=== PATIENT | female | born 1975 | race Caucasian/White ===

== ENCOUNTER 2016-06-16 13:42 | Emergency (ER) | payer OTHER ==
[2016-06-16] MEDS ORDERED: Sodium Chloride 0.9% 10 ML Syringe FLUSH PRN (14:06)
[2016-06-16 14:16] VITALS: BP 137/90
[2016-06-16] MEDS ORDERED: Iopamidol 612 MG/ML 50 ML SDV IVPUSH ONE (14:20)
[2016-06-16] MEDS ORDERED: Iopamidol 612 MG/ML 75 ML Bottle IVPUSH ONE (14:20)
[2016-06-16 14:57] LABS: CHLORIDE,CL 101 mmol/L (101-111); SODIUM,NA 136 mmol/L (135-145)
--- NOTE | 2016-07-10 16:49 | EDM.PDOC ---
Scribed by Paola Gonzalez 06/16/16 1846 for Miller Perez MD ED HPI ENT - General Chief Complaint: ENT Problem Stated Complaint: cold [id number] Time Seen by Provider: 06/16/16 14:15 Source of Information: Reports: Patient, RN, RN notes reviewed History Limitations: Reports: No limitations - History of Present Illness INITIAL COMMENTS - FREE TEXT/NARRATIVE: Patient with "swollen glands" in neck x 1-2 weeks. Has been seen in clinic by Dr. Rasmussen and had lab draws yesterday and CT scheduled for next Saturday. Reports mild sore throat and "no voice". Similar swelling last year and "never got a diagnosis". Denies fever, nausea, vomiting, neck pain and weight gain or loss. Severity: moderate Improves with: Reports: None Worsens with: Reports: None Associated Symptoms: Reports: no other symptoms - Related Data Allergies/ADRs: Allergies Allergy/AdvReac Type Severity Reaction Status Date / Time cyclobenzaprine HCl Allergy Anaphylactic Verified 06/16/16 14:32 [From Flexeril] Shock gluten Allergy Other Verified 06/16/16 14:32 haloperidol [From Haldol] Allergy Other Verified 06/16/16 14:32 haloperidol lactate Allergy Other Verified 06/16/16 14:32 [From Haldol] venom-honey bee Allergy Hives Verified 06/16/16 14:32 [bee venom (honey bee)] Ivory soap Allergy Rash Uncoded 06/16/16 14:32 Home Meds: Home Meds Acetaminophen [Tylenol Arthritis Pain] 1 tab PO TID 05/08/16 [History] Albuterol In 2 puff INH QID PRN 05/08/16 [History] Bacillus Coagulans/Inulin [Probiotic Formula Capsule] 1 each PO DAILY 05/08/16 [ History] Cetirizine HCl [Zyrtec] 10 mg PO BID 05/08/16 [History] Dicyclomine [Bentyl] 20 mg PO QID PRN 05/08/16 [History] EPINEPHrine [Epipen 2-Uvaldo] 0.3 ml IM ONETIME PRN 05/08/16 [History] Ergocalciferol (Vitamin D2) [Vitamin D2] 50,000 units PO DAILY 05/08/16 [History ] Estradiol [Estradiol] 1 tab PO DAILY 05/08/16 [History] Fenofibrate [Fenofibrate] 1 tab PO DAILY 05/08/16 [History] Fiber Select Gummies 1 tab PO DAILY 05/08/16 [History] Fluticasone Propionate [Flonase] 1 spray NASBOTH DAILY 05/08/16 [History] Glycopyrrolate [Robinul] 1 mg PO BID 05/08/16 [History] Hydrochlorothiazide 25 mg PO DAILY 05/08/16 [History] Indomethacin [Indocin] 1 cap PO BIDMEALS 05/08/16 [History] LORazepam [LORazepam] 0.5 mg PO BID PRN 05/08/16 [History] Levothyroxine Sodium [Synthroid] 150 mcg PO ACBREAKFAST 05/08/16 [History] Lysine 1 tab PO BID 05/08/16 [History] Minocycline HCl [Minocin] 1 cap PO BID 05/08/16 [History] Waves-3/DHA/Epa/Fish Oil [Fish Oil Waves-3 EC 1,200 mg] 2,000 mg PO BID [History] Ondansetron HCl [Ondansetron] 1 tab PO Q8HR PRN 05/08/16 [History] PARoxetine HCl [Paroxetine HCl] 20 mg PO DAILY 05/08/16 [History] Pantoprazole [Protonix] 40 mg PO ACBREAKFAST 05/08/16 [History] Prazosin HCl [Prazosin] 3 cap PO BEDTIME 05/08/16 [History] Propranolol HCl 80 mg PO BID 05/08/16 [History] Sod Chlor&Bicarb/Squeez Bottle [Sinus Rinse Starter Kit] 1 each NASBOTH TID PRN 05/08/16 [History] atorvaSTATin Calcium [Atorvastatin Calcium] 80 mg PO BEDTIME 05/08/16 [History] tiZANidine HCl [Tizanidine HCl] 1 tab PO Q6H PRN 05/08/16 [History] Varenicline Tartrate [Chantix] 1 mg PO DAILY 06/16/16 [History] Social & Family History - Family History Family Medical History: Noncontributory ED ROS ENT - Review of Systems Review Of Systems: ROS reveals no pertinent complaints other than HPI. ED EXAM, ENT - Physical Exam Exam: See Below Exam Limited By: No limitations General Appearance: obese Eye Exam: bilateral eye: conjunctival injection Ears: normal external exam Nose: normal inspection, normal mucousa, no blood Mouth/Throat: Hoarse voice (faint), Other (normal appearing pharynx. ) Head: atraumatic, normocephalic, other (bilateral parotid swelling with very slight tenderness.) Neck: other (left supraclavicular swelling without palpable individual nodes.) Respiratory/Chest: no respiratory distress, lungs clear, normal breath sounds, no accessory muscle use, chest non-tender Cardiovascular: normal peripheral pulses, regular rate, rhythm, no edema, no gallop, no JVD, no murmur, no rub GI/Abdominal: other (obese and benign.) Back: normal inspection, full range of motion Extremities: normal inspection, normal range of motion, non-tender, no pedal edema, normal capillary refill Neurological: other (chronic tartive dyskineaia. No motor/sensory deficits.) Course - Vital Signs Last Recorded V/S: Last Vital Signs Temp 35.9 C 06/16/16 13:45 Pulse 90 06/16/16 13:45 Resp 16 06/16/16 13:45 BP 137/90 06/16/16 13:45 Pulse Ox 98 06/16/16 13:45 - Orders/Labs/Meds Labs: Laboratory Tests 06/16/16 06/16/16 06/16/16 Range/Units 14:30 14:30 14:30 WBC 6.2 (5.0-10.0) 10^3/uL RBC 4.06 L (4.2-5.4) 10^6/uL Hgb 12.7 (12.0-16.0) g/dL Hct 38.1 (37.0-47.0) % MCV 93.8 (80-100) fL MCH 31.3 (27.0-34.0) pg MCHC 33.3 (33.0-35.0) g/dL RDW Not Reportable RDW Coeff of Sarah Not Reportable Plt Count 311 (150-450) 10^3/uL MPV Not Reportable Neutrophils % (Manual) 56 % Lymphocytes % (Manual) 35 % Monocytes % (Manual) 8 % Eosinophils % (Manual) 1 % Sodium 136 (135-145) mmol/L Potassium 3.9 (3.6-5.0) mmol/L Chloride 101 (101-111) mmol/L Carbon Dioxide 25.0 (21.0-31.0) mmol/L Anion Gap 13.9 BUN 25 H (7-18) mg/dL Creatinine 0.7 (0.6-1.3) mg/dL Est Cr Clr Drug Dosing 99.01 mL/min Estimated GFR (MDRD) > 60 BUN/Creatinine Ratio 35.71 Glucose 113 H (74-105) mg/dL Calcium 9.4 (8.4-10.2) mg/dl Total Bilirubin 0.4 (0.2-1.0) mg/dL AST 24 (10-42) IU/L ALT 27 (10-60) IU/L Alkaline Phosphatase 36 L (42-121) IU/L Total Protein 7.1 (6.7-8.2) g/dl Albumin 4.1 (3.2-5.5) g/dl Globulin 3.0 Albumin/Globulin Ratio 1.37 Amylase 79 (28-100) U/L Urine Color (YELLOW) Urine Appearance (CLEAR) Urine pH (5.0-9.0) Ur Specific [place] (1.005-1.030) Urine Protein (NEGATIVE) Urine Glucose (UA) (NEGATIVE) Urine Ketones (NEGATIVE) Urine Occult Blood (NEGATIVE) Urine Nitrite (NEGATIVE) Urine Bilirubin (NEGATIVE) Urine Urobilinogen (0.2-1.0) mg/dL Ur Leukocyte Esterase (NEGATIVE) Urine RBC /HPF Urine WBC (0-5/HPF) /HPF Ur Epithelial Cells /HPF Urine Bacteria (0-FEW/HPF) /HPF Monoscreen Negative Mumps Virus IgG Ab Positive (POS) Mumps Virus IgM Ab IV 06/16/16 06/16/16 Range/Units 14:30 14:45 WBC (5.0-10.0) 10^3/uL RBC (4.2-5.4) 10^6/uL Hgb (12.0-16.0) g/dL Hct (37.0-47.0) % MCV (80-100) fL MCH (27.0-34.0) pg MCHC (33.0-35.0) g/dL RDW RDW Coeff of Sarah Plt Count (150-450) 10^3/uL MPV Neutrophils % (Manual) % Lymphocytes % (Manual) % Monocytes % (Manual) % Eosinophils % (Manual) % Sodium (135-145) mmol/L Potassium (3.6-5.0) mmol/L Chloride (101-111) mmol/L Carbon Dioxide (21.0-31.0) mmol/L Anion Gap BUN (7-18) mg/dL Creatinine (0.6-1.3) mg/dL Est Cr Clr Drug Dosing mL/min Estimated GFR (MDRD) BUN/Creatinine Ratio Glucose (74-105) mg/dL Calcium (8.4-10.2) mg/dl Total Bilirubin (0.2-1.0) mg/dL AST (10-42) IU/L ALT (10-60) IU/L Alkaline Phosphatase (42-121) IU/L Total Protein (6.7-8.2) g/dl Albumin (3.2-5.5) g/dl Globulin Albumin/Globulin Ratio Amylase (28-100) U/L Urine Color Yellow (YELLOW) Urine Appearance Clear (CLEAR) Urine pH 6.5 (5.0-9.0) Ur Specific [place] 1.020 (1.005-1.030) Urine Protein Negative (NEGATIVE) Urine Glucose (UA) Negative (NEGATIVE) Urine Ketones Negative (NEGATIVE) Urine Occult Blood Negative (NEGATIVE) Urine Nitrite Negative (NEGATIVE) Urine Bilirubin Negative (NEGATIVE) Urine Urobilinogen 0.2 (0.2-1.0) mg/dL Ur Leukocyte Esterase Negative (NEGATIVE) Urine RBC 0-5 /HPF Urine WBC 0-5 (0-5/HPF) /HPF Ur Epithelial Cells Few /HPF Urine Bacteria Occasional (0-FEW/HPF) /HPF Monoscreen Mumps Virus IgG Ab (POS) Mumps Virus IgM Ab 0.11 IV Meds: Medications Discontinued Medications Generic Name Dose Route Start Last Admin Trade Name Freq PRN Reason Stop Dose Admin Iopamidol 75 ml 06/16/16 14:20 06/16/16 15:31 Isovue-300 (61%) IVPUSH 06/16/16 14:21 100 ml ONETIME ONE Administration Iopamidol 50 ml 06/16/16 14:20 06/16/16 16:06 Isovue-300 (61%) IVPUSH 06/16/16 14:21 Not Given ONETIME ONE Sodium Chloride 10 ml 06/16/16 14:06/16/16 14:35 Saline Flush FLUSH 10 ml ASDIRECTED PRN Administration Keep Vein Open Rapid strep: Negative. - Radiology Interpretation Free Text/Narrative:: CT chest: Per rad report shows normal chest CT. CT abdomen: Per rad report shows no acute findings. CT neck soft tissue: Per rad report shows no acute findings. Per rad report addendum shows both parotid glands are prominent. Left parotid gland is slightly more prominent than the right. This could represent inflammation or infection. Departure - Departure Time of Disposition: 16:35 Disposition: Home, Self-Care 01 Condition: good Clinical Impression: Localized soft tissue swelling, Acute parotitis, Laryngitis Instructions: Parotitis, [id number], Laryngitis, [id number] Referrals: Pily Navarro MD [Primary Care Provider] - Forms: ED Department Discharge Additional Instructions: Follow up in clinic next week with your doctor. Have doctor review the lab results and CT results from today's ER visit. Use salt water gargles several times daily. Use cool mist humidifier. I have read and agree with the documentation that has been completed regarding this visit. By signing this record, I attest that the documentation was completed in my physical presence and is an accurate record of the encounter.
== END 2016-06-16 16:52 | disposition home or self-care (01) ==
LOC: DL.ED 13:42
DX: K11.21 Acute sialoadenitis (principal); J04.0 Acute laryngitis; Z79.899 Other long term (current) drug therapy; Z91.09 Other allergy status, other than to drugs and biological substances; Z88.8 Allergy status to other drugs, medicaments and biological substances
CPT/HCPCS: 36415; 70491; 71260; 74177; 80053; 81001; 82150; 85025; 86308; 86735; 87081; 87430; 99284; J7050; Q9967

== ENCOUNTER 2016-07-13 04:53 | Emergency (ER) | payer OTHER ==
[2016-07-13 05:01] VITALS: BP 90/65
--- NOTE | 2016-07-13 05:17 | EDM.PDOC ---
ED HPI LOWER BACK PAIN/INJURY - General Chief Complaint: Back Pain or Injury Stated Complaint: BACK PAIN Time Seen by Provider: 07/13/16 05:05 Source of Information: Reports: Patient History Limitations: Reports: No limitations - History of Present Illness INITIAL COMMENTS - FREE TEXT/NARRATIVE: This 41 yo female patient reports to the ED with left side and left abdomen pain. The patient reports she was seen for this pain in the clinic 2 days ago and was started on Norflex. The patient reports she had x-rays on Saturday which showed a kidney stone. The patient was advised by the clinic that the kidney stone was not causing her symptoms. The patient reports she has been feeling bloated over the past 2 days. The patient reports no changes in her bowel movements or in her urinary habits. The patient reports her pain has increased this morning, but the patient has not taken anything for her symptoms since last night. Symptom Onset Date: 07/10/16 Timing/Duration: Reports: Constant, Getting worse Location: Reports: lower (left lower back), paraspinal Quality: Reports: Ache, Sharp, Stabbing Severity: severe Place of Occurrence: home Improves with: Reports: Rest Worsens with: Reports: Movement Context: Reports: other (unknown) Associated Symptoms: Reports: Denies symptoms - Related Data Allergies/ADRs: Allergies Allergy/AdvReac Type Severity Reaction Status Date / Time cyclobenzaprine HCl Allergy Anaphylactic Verified 07/13/16 05:03 [From Flexeril] Shock gluten Allergy Other Verified 07/13/16 05:03 haloperidol [From Haldol] Allergy Other Verified 07/13/16 05:03 haloperidol lactate Allergy Other Verified 07/13/16 05:03 [From Haldol] venom-honey bee Allergy Hives Verified 07/13/16 05:03 [bee venom (honey bee)] Ivory soap Allergy Rash Uncoded 07/13/16 05:03 Home Meds: Home Meds Acetaminophen [Tylenol Arthritis Pain] 1 tab PO TID 05/08/16 [History] Albuterol In 2 puff INH QID PRN 05/08/16 [History] Bacillus Coagulans/Inulin [Probiotic Formula Capsule] 1 each PO DAILY 05/08/16 [ History] Cetirizine HCl [Zyrtec] 10 mg PO BID 05/08/16 [History] Dicyclomine [Bentyl] 20 mg PO QID PRN 05/08/16 [History] EPINEPHrine [Epipen 2-Uvaldo] 0.3 ml IM ONETIME PRN 05/08/16 [History] Ergocalciferol (Vitamin D2) [Vitamin D2] 50,000 units PO DAILY 05/08/16 [History ] Estradiol [Estradiol] 1 tab PO DAILY 05/08/16 [History] Fenofibrate [Fenofibrate] 1 tab PO DAILY 05/08/16 [History] Fiber Select Gummies 1 tab PO DAILY 05/08/16 [History] Fluticasone Propionate [Flonase] 1 spray NASBOTH DAILY 05/08/16 [History] Glycopyrrolate [Robinul] 1 mg PO BID 05/08/16 [History] Hydrochlorothiazide 25 mg PO DAILY 05/08/16 [History] Indomethacin [Indocin] 1 cap PO BIDMEALS 05/08/16 [History] LORazepam [LORazepam] 0.5 mg PO BID PRN 05/08/16 [History] Levothyroxine Sodium [Synthroid] 150 mcg PO ACBREAKFAST 05/08/16 [History] Lysine 1 tab PO BID 05/08/16 [History] Minocycline HCl [Minocin] 1 cap PO BID 05/08/16 [History] [place]-3/DHA/Epa/Fish Oil [Fish Oil [place]-3 EC 1,200 mg] 2,000 mg PO BID [History] Ondansetron HCl [Ondansetron] 1 tab PO Q8HR PRN 05/08/16 [History] PARoxetine HCl [Paroxetine HCl] 20 mg PO DAILY 05/08/16 [History] Pantoprazole [Protonix] 40 mg PO ACBREAKFAST 05/08/16 [History] Prazosin HCl [Prazosin] 3 cap PO BEDTIME 05/08/16 [History] Propranolol HCl 80 mg PO BID 05/08/16 [History] Sod Chlor&Bicarb/Squeez Bottle [Sinus Rinse Starter Kit] 1 each NASBOTH TID PRN 05/08/16 [History] atorvaSTATin Calcium [Atorvastatin Calcium] 80 mg PO BEDTIME 05/08/16 [History] Varenicline Tartrate [Chantix] 1 mg PO DAILY 06/16/16 [History] Orphenadrine [Norflex] 1 tab PO Q6H PRN 07/13/16 [History] Past Medical History Cardiovascular History: Reports: High cholesterol, Hypertension Gastrointestinal History: Reports: Irritable bowel syndrome Endocrine/Metabolic History: Reports: Hyperthyroidism Social & Family History - Family History Family Medical History: Noncontributory - Tobacco Use Smoking Status *Q: Current Every Day Smoker Years of Tobacco use: 18 Packs/Tins Daily: 0.5 ED ROS GENERAL - Review of Systems Review Of Systems: ROS reveals no pertinent complaints other than HPI. ED EXAM,LOWER BACK PAIN/INJURY - Physical Exam Exam: See Below Exam Limited By: No limitations General Appearance: alert, WD/WN, moderate distress, obese Eye Exam: bilateral eye: EOMI, normal inspection, PERRL Ears: normal external exam, normal canal, hearing grossly normal, normal TMs Nose: normal inspection, normal mucosa, no blood Throat/Mouth: Normal inspection, Normal lips, Normal teeth, Normal gums, Normal oropharynx, Normal voice, No airway compromise Head: atraumatic, normocephalic Neck: normal inspection, supple, non-tender, full range of motion Respiratory/Chest: no respiratory distress, lungs clear, normal breath sounds, no accessory muscle use, chest non-tender Cardiovascular: normal peripheral pulses, regular rate, rhythm, no edema, no gallop, no JVD, no murmur, no rub GI/Abdominal: normal bowel sounds, no abnormal bruit, no mass, distended ( diffuse abdomenal distention), tender (entire left side of her abdomen to light touch), other (obese) (Female) Exam: Deferred Rectal (Female) Exam: Deferred Back Exam: CVA tenderness (L), decreased range of motion, muscle spasm, paraspinal tenderness (left side) Extremities: normal inspection, normal range of motion, non-tender, no pedal edema, normal capillary refill Neurological: alert, normal mood/affect, CN II-XII intact, oriented x 3 Psychiatric: anxious, flat affect Skin Exam: Warm, Dry, Intact, Normal color, No rash Lymphatic: no adenopathy Course - Vital Signs Last Recorded V/S: Last Vital Signs Temp 36.4 C 07/13/16 05:00 Pulse 71 07/13/16 05:00 Resp 20 07/13/16 05:00 BP 90/65 07/13/16 05:00 Pulse Ox 100 07/13/16 05:00 - Orders/Labs/Meds Labs: Laboratory Tests 07/13/16 07/13/16 07/13/16 Range/Units 05:10 05:10 05:30 WBC 6.7 (5.0-10.0) 10^3/uL RBC 4.24 (4.2-5.4) 10^6/uL Hgb 13.3 (12.0-16.0) g/dL Hct 39.8 (37.0-47.0) % MCV 93.9 (80-100) fL MCH 31.4 (27.0-34.0) pg MCHC 33.4 (33.0-35.0) g/dL Plt Count 288 (150-450) 10^3/uL Neut % (Auto) 45.2 (42.2-75.2) % Lymph % (Auto) 43.9 (20.5-50.1) % [place] % (Auto) 8.6 H (2-8) % Eos % (Auto) 1.8 (1.0-3.0) % Baso % (Auto) 0.5 (0.0-1.0) % Sodium 135 (135-145) mmol/L Potassium 4.3 (3.6-5.0) mmol/L Chloride 100 L (101-111) mmol/L Carbon Dioxide 24.0 (21.0-31.0) mmol/L Anion Gap 15.3 BUN 21 H (7-18) mg/dL Creatinine 0.9 (0.6-1.3) mg/dL Est Cr Clr Drug Dosing TNP Estimated GFR (MDRD) > 60 BUN/Creatinine Ratio 23.33 Glucose 120 H (74-105) mg/dL Calcium 8.8 (8.4-10.2) mg/dl Total Bilirubin 0.4 (0.2-1.0) mg/dL AST 23 (10-42) IU/L ALT 26 (10-60) IU/L Alkaline Phosphatase 45 (42-121) IU/L Total Protein 7.0 (6.7-8.2) g/dl Albumin 3.9 (3.2-5.5) g/dl Globulin 3.1 Albumin/Globulin Ratio 1.26 Amylase 61 (28-100) U/L Lipase 29 (22-51) U/L Urine Color Yellow (YELLOW) Urine Appearance Clear (CLEAR) Urine pH 5.0 (5.0-9.0) Ur Specific [place] 1.015 (1.005-1.030) Urine Protein Negative (NEGATIVE) Urine Glucose (UA) Negative (NEGATIVE) Urine Ketones Negative (NEGATIVE) Urine Occult Blood Negative (NEGATIVE) Urine Nitrite Negative (NEGATIVE) Urine Bilirubin Negative (NEGATIVE) Urine Urobilinogen 0.2 (0.2-1.0) mg/dL Ur Leukocyte Esterase Negative (NEGATIVE) Urine RBC 0-5 /HPF Urine WBC 0-5 (0-5/HPF) /HPF Ur Epithelial Cells Few /HPF Urine Bacteria Few (0-FEW/HPF) /HPF Urine Yeast Few H (0/HPF) /HPF Meds: Medications Discontinued Medications Generic Name Dose Route Start Last Admin Trade Name Freq PRN Reason Stop Dose Admin Ketorolac Tromethamine 60 mg 07/13/16 05:49 Toradol IM 07/13/16 05:50 ONETIME ONE Orphenadrine Citrate 60 mg 07/13/16 05:49 Norflex IM 07/13/16 05:50 ONETIME ONE Departure - Departure Time of Disposition: 06:01 Disposition: Home, Self-Care 01 Condition: fair Clinical Impression: Muscle strain, Strain of muscle, fascia and tendon of lower back, sequela Instructions: Back Pain, Adult, [id number], Muscle Strain, [id number] Forms: ED Department Discharge Care Plan Goals: The patient was advised of the examination and lab results during the visit. The patient was given injections of Toradol and Norflex while in the ED. The patient was encouraged to take her medications as prescribed. The patient should follow-up with her primary care facility for continued evaluation and further management.
[2016-07-13 05:38] LABS: CHLORIDE,CL 100 mmol/L (101-111); SODIUM,NA 135 mmol/L (135-145)
[2016-07-13] MEDS ORDERED: Ketorolac 30 MG/ML SDV IM ONE (05:49)
== END 2016-07-13 06:17 | disposition home or self-care (01) ==
LOC: DL.ED 04:53
DX: S39.012S Strain of muscle, fascia and tendon of lower back, sequela (principal); E78.00 Pure hypercholesterolemia, unspecified; I10 Essential (primary) hypertension; E05.90 Thyrotoxicosis, unspecified without thyrotoxic crisis or storm; F17.210 Nicotine dependence, cigarettes, uncomplicated; Z91.09 Other allergy status, other than to drugs and biological substances; Z88.8 Allergy status to other drugs, medicaments and biological substances; Z91.030 Bee allergy status; Z79.899 Other long term (current) drug therapy
CPT/HCPCS: 36415; 80053; 81001; 82150; 83690; 85025; 96372; 99283; J1885; J2360

== ENCOUNTER 2016-09-05 07:07 | Day surgery (SDC) | payer MEDICARE, OTHER ==
[~2016-09-05 07:07] MED LIST: Dextrose 5%-0.45% NaCl 1,000 ML IV SCH; Midazolam 1 MG/ML 2 ML SDV ONE; Sodium Chloride 0.9% 10 ML Syringe FLUSH PRN; fentaNYL 100 MCG/2 ML SDV ONE
[2016-09-05] MEDS ORDERED: fentaNYL 100 MCG/2 ML SDV IV ONE ×3 (07:49→15:34)
[2016-09-05] MEDS ORDERED: Midazolam 1 MG/ML 2 ML SDV IV ONE ×4 (07:50→15:34)
[2016-09-05 10:42] VITALS: BP 114/64
--- NOTE | 2016-09-05 10:51 | OR ---
DATE: 09/05/2016 PROCEDURE: Esophagogastroduodenoscopy and multiple pinch biopsies. INSTRUMENT USED: GIF-Q180 Olympus video panendoscope. PREMEDICATIONS: No oral topical anesthesia used. Fentanyl 100 mcg intravenous, Versed 2 mg intravenous. The procedure was done under pulse oximetry, BP recording, and laboratory mechanic helper. INDICATION: The patient with persistent heartburn, dyspepsia, abdominal pain, and bloating, unexplained, and not responsive to medical measures, on high-dose PPI. Has been on manager technology Indocin. Esophagogastroduodenoscopy is performed for detection of any active erosive lesions, Carrillo esophagus and/or malignancy also under consideration, H. pylori status to be determined, small bowel biopsies to be obtained for celiac disease, endoscopic hemostasis therapy if needed. DESCRIPTION OF PROCEDURE: The scope was passed with ease. Adequate visualization of the esophagus was made from proximal to distal areas. No upper esophageal lesions identified. No distal esophageal stricture. No uphill or downhill esophageal varices. No Eliane-Rock tear. No evidence of erosive esophagitis by [place] criteria. No esophageal polyp or tumor mass identified. Z-line was seen at around 39 cm distal to the oral verge, configuration consistent with grade 1 by ZAP classification. No proximal gastric varices noted. Fundus examination by retroflexion showed no polypoid lesions. No gastric ulcer, malignant mass, or vascular ectasia identified. Numerous erosions were noted in the gastric antrum, longitudinally placed and "watermelon stomach" also under consideration, some pyloric channel erosions were noted. Duodenal bulb was unremarkable. Visualized second part of the duodenum was unremarkable. Multiple pinch biopsies were taken 4 in number from different areas of the second part of the duodenum and also from 9 and 12 o'clock positions of the duodenal bulb and sent for any histopathologic evidence of celiac disease. Multiple pinch biopsies were also obtained from the gastric antrum and proximal body and sent for PyloriTek test for H. pylori and histopathology. No bleeding was noted from any of the visualized areas at the completion of examination. Photographs were taken of the duodenal bulb, gastric antrum, fundus, and distal esophagus. IMPRESSION: Gastric antral erosions. The patient tolerated the procedure well. [facility] /[id number]
== END 2016-09-05 10:10 | disposition home or self-care (01) ==
LOC: DL.ENDO 07:07 → EEVIPCON 07:07 → DL.ENDO 10:10
PROVIDERS: ATTEND Internal Medicine Gastroenterology
DX: K31.9 Disease of stomach and duodenum, unspecified (principal); R12 Heartburn; R14.0 Abdominal distension (gaseous); E66.9 Obesity, unspecified; M79.7 Fibromyalgia; E03.9 Hypothyroidism, unspecified; E78.5 Hyperlipidemia, unspecified; Z87.19 Personal history of other diseases of the digestive system; Z98.890 Other specified postprocedural states
CPT/HCPCS: 43239; 87077; J2250; J3010; J7042

== ENCOUNTER 2019-06-10 09:19 | Emergency (ER) | payer MEDICARE, OTHER ==
[2019-06-10 09:30] VITALS: BP 120/83; PULSE 102
[2019-06-10] MEDS ORDERED: Sodium Chloride 0.9% 10 ML Syringe FLUSH PRN (09:33)
[2019-06-10 10:23] LABS: ANION GAP 15.6; CHLORIDE,CL 103 mmol/L (101-111); SODIUM,NA 137 mmol/L (135-145)
--- NOTE | 2019-06-10 10:27 | EDM.PDOC ---
<Kristina Harvey - Last Filed: 06/10/19 12:13> ED HPI GENERAL MEDICAL PROBLEM - General Chief Complaint: Chest Pain Stated Complaint: CHEST PAIN, abdominal pain Time Seen by Provider: 06/10/19 10:15 Source of Information: Reports: Patient History Limitations: Reports: No Limitations - History of Present Illness INITIAL COMMENTS - FREE TEXT/NARRATIVE: Patient presents to the ED by private vehicle with concerns of epigastric and bilateral flank pain and emesis. The patient states that she was seen in a clinic yesterday and prescribed Ceftin. She states she was having dizziness, vertigo, and ear pain at that time. Over the evening hours she had several bouts of emesis and diarrhea and developed the pain in her epigastric and bilateral flanks. She describes the pain as pressure with occasional stabbing pains, 9/10. She has not identified any aggravating factors. The pain is temporarily alleviated by emesis or bowel movement. The patient does suffer from diarrhea at baseline due to irritable bowel and this is not a new symptom for her. She denies blood in the stool. The patient does suffer from celiac, but denies any potential contact with gluten. She does have a history of nephrolithiasis in February 2019. Onset: Today Duration: Getting Worse, Waxing/Waning Location: Reports: Abdomen Quality: Reports: Pressure, Sharp Severity: Moderate Improves with: Reports: Other (bowel movement, emesis) Worsens with: Reports: None Associated Symptoms: Reports: Fever/Chills, Nausea/Vomiting. 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 WINDER: antibiotic prescribed yesterday, unknown Chest Pain Score (Numeric/FACES): 9 - Related Data Allergies Allergy/AdvReac Type Severity Reaction Status Date / Time cyclobenzaprine HCl Allergy Anaphylactic Verified 06/10/19 09:30 [From Flexeril] Shock gluten Allergy Other Verified 06/10/19 09:30 haloperidol [From Haldol] Allergy Other Verified 06/10/19 09:30 haloperidol lactate Allergy Other Verified 06/10/19 09:30 [From Haldol] venom-honey bee Allergy Hives Verified 06/10/19 09:30 [bee venom (honey bee)] Ivory soap Allergy Rash Uncoded 06/10/19 09:30 Home Meds: Home Meds Acetaminophen [Tylenol Arthritis Pain] 1 tab PO TID 05/08/16 [History] Albuterol In 2 puff INH QID PRN 05/08/16 [History] Bacillus Coagulans/Inulin [Probiotic Formula Capsule] 1 each PO DAILY 05/08/16 [ History] Cetirizine HCl [Zyrtec] 10 mg PO BID 05/08/16 [History] Dicyclomine [Bentyl] 20 mg PO QID PRN 05/08/16 [History] EPINEPHrine [Epipen 2-Uvaldo] 0.3 ml IM ONETIME PRN 05/08/16 [History] Ergocalciferol (Vitamin D2) [Vitamin D2] 50,000 units PO WEEKLY 05/08/16 [ History] Fiber Select Gummies 1 tab PO DAILY 05/08/16 [History] Fluticasone Propionate [Flonase] 1 spray NASBOTH DAILY 05/08/16 [History] Glycopyrrolate [Robinul] 1 mg PO BID 05/08/16 [History] Hydrochlorothiazide 25 mg PO DAILY 05/08/16 [History] LORazepam 0.5 mg PO BID PRN 05/08/16 [History] Levothyroxine Sodium [Synthroid] 150 mcg PO ACBREAKFAST 05/08/16 [History] Lysine 1 tab PO BID 05/08/16 [History] Minocycline HCl [Minocin] 1 cap PO BID 05/08/16 [History] [place]-3/DHA/Epa/Fish Oil [Fish Oil [place]-3 EC 1,200 mg] 2,000 mg PO BID [History] Prazosin HCl [Prazosin] 1 cap PO BEDTIME 05/08/16 [History] Propranolol HCl 80 mg PO BID 05/08/16 [History] Sod Chlor&Bicarb/Squeez Bottle [Sinus Rinse Starter Kit] 1 each NASBOTH TID PRN 05/08/16 [History] atorvaSTATin Calcium [Atorvastatin Calcium] 80 mg PO BEDTIME 05/08/16 [History] estradioL [Estradiol] 1 tab PO DAILY 05/08/16 [History] Fenofibrate Nanocrystallized [Triglide] 1 tab PO DAILY 09/04/16 [History] Magnesium Oxide 1 tab PO DAILY 09/04/16 [History] Omeprazole 20 mg PO BID 09/04/16 [History] Triamcinolone Acetonide [Triamcinolone Acetonide 0.1% Oint] 1 applic TOP ASDIRECTED 09/04/16 [History] FLUoxetine HCl [Fluoxetine HCl] 20 mg PO DAILY 04/25/18 [History] Sulfamethoxazole/Trimethoprim [Sulfamethoxazole-Tmp Ds Tablet] 1 tab PO BID [History] Past Medical History HEENT History: Reports: Allergic Rhinitis, Other (See Below) Other HEENT History: LARYNGITIS Cardiovascular History: Reports: High Cholesterol, Hypertension Respiratory History: Reports: Asthma Gastrointestinal History: Reports: Irritable Bowel Syndrome Other Gastrointestinal History: Hx of Celiac Disease 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: Musculoskeletal History: Reports: Arthritis, Fibromyalgia, Other (See Below) Other Musculoskeletal History: carpel tunnel Neurological History: Reports: Migraines Psychiatric History: Reports: Anxiety, Depression, PTSD, Other (See Below) Other Psychiatric History: HX OF MAJOR PSYCHIATRIC ILLNESS Endocrine/Metabolic History: Reports: Hypothyroidism Hematologic History: Reports: None Immunologic History: Reports: None Oncologic (Cancer) History: Reports: None Dermatologic History: Reports: None - Infectious Disease History Infectious Disease History: Reports: Chicken Pox - Past Surgical History Head Surgeries/Procedures: Reports: None HEENT Surgical History: Reports: None Cardiovascular Surgical History: Reports: None Respiratory Surgical History: Reports: None GI Surgical History: Reports: Appendectomy, Cholecystectomy Female Surgical History: Reports: Hysterectomy, Oophorectomy, Tubal Ligation , Other (See Below) Other Female Surgeries/Procedures: OVARIAN CYST REMOVAL Endocrine Surgical History: Reports: None Neurological Surgical History: Reports: None Musculoskeletal Surgical History: Reports: Other (See Below) Other Musculoskeletal Surgeries/Procedures:: FOOT SURGERY Dermatological Surgical History: Reports: None Social & Family History - Family History Family Medical History: Noncontributory - Tobacco Use Smoking Status *Q: Former Smoker Used Tobacco, but Quit: Yes Month/Year Tobacco Last Used: 01/2019 - Caffeine Use Caffeine Use: Reports: None Other Caffeine Use: one or two cups of coffee...decaff. and one soda a day - Recreational Drug Use Recreational Drug Use: No ED ROS GENERAL - Review of Systems Review Of Systems: See Below Constitutional: Reports: Chills. Denies: Fever Respiratory: Denies: Shortness of Breath, Cough Cardiovascular: Denies: Chest Pain, Palpitations GI/Abdominal: Reports: Abdominal Pain, Diarrhea, Nausea, Vomiting. Denies: Bloody Stool, Constipation, Melena : Reports: Flank Pain. Denies: Hematuria ED EXAM, GI/ABD - Physical Exam Exam: See Below Exam Limited By: No Limitations General Appearance: Alert, Mild Distress Throat/Mouth: Normal Inspection, Normal Oropharynx Head: Atraumatic, Normocephalic Neck: Non-Tender Respiratory/Chest: No Respiratory Distress, Lungs Clear, Normal Breath Sounds Cardiovascular: Normal Peripheral Pulses, Regular Rate, Rhythm, No Murmur GI/Abdominal Exam: Normal Bowel Sounds, Soft, Tender (diffuse, increased over epigastric and bilateral flanks) Neurological: Alert, Oriented Psychiatric: Normal Affect, Normal Mood EKG INTERPRETATION EKG Date: 06/10/19 Time: 09:38 Rhythm: NSR [place]: Normal P-Wave: Present QRS: Normal ST-T: Normal QT: Normal Comparison: NA - No Prior EKG Course - Vital Signs Last Recorded V/S: Last Vital Signs Temp 98 F 06/10/19 09:26 Pulse 102 H 06/10/19 09:26 Resp 20 06/10/19 09:26 BP 120/83 06/10/19 09:26 Pulse Ox 98 06/10/19 09:26 - Orders/Labs/Meds Orders: Active Orders 24 hr Category Date Time Status EKG 12 Lead [EKG Documentation Completion] [RC] STAT Care 06/10/19 09:34 Active Peripheral IV Care [RC] . DIRECTED Care 06/10/19 09:35 Active CULTURE BLOOD [] Stat Lab 06/10/19 09:46 Received CULTURE BLOOD [] Stat Lab 06/10/19 09:53 Received CULTURE STREP A CONFIRMATION [] Stat Lab 06/10/19 09:57 Results STREP SCRN A RAPID W CULT CONF [] Stat Lab 06/10/19 09:57 Results Sodium Chloride 0.9% [Saline Flush] Med 06/10/19 09:33 Active 10 ml FLUSH ASDIRECTED PRN Blood Culture x2 Reflex Set [OM.PC] Stat Oth 06/10/19 09:34 Ordered Peripheral IV Insertion Adult [OM.PC] Stat Oth 06/10/19 09:34 Ordered Medication Orders Sodium Chloride (Saline Flush) 10 ml FLUSH ASDIRECTED PRN PRN Reason: Keep Vein Open Last Admin: 06/10/19 10:33 Dose: 10 ml Labs: Laboratory Tests 06/10/19 06/10/19 06/10/19 Range/Units 09:46 09:46 09:46 WBC 6.0 (5.0-10.0) 10^3/uL RBC 4.23 (4.2-5.4) 10^6/uL Hgb 12.9 (12.0-16.0) g/dL Hct 38.9 (37.0-47.0) % MCV 92.0 (80-100) fL MCH 30.5 (27.0-34.0) pg MCHC 33.2 (33.0-35.0) g/dL Plt Count 297 (150-450) 10^3/uL Neut % (Auto) 84.2 H (42.2-75.2) % Lymph % (Auto) 8.9 L (20.5-50.1) % [place] % (Auto) 5.4 (2-8) % Eos % (Auto) 1.3 (1.0-3.0) % Baso % (Auto) 0.2 (0.0-1.0) % D-Dimer, Quantitative 148 (0-400) ng/mL Sodium 137 (135-145) mmol/L Potassium 3.6 (3.6-5.0) mmol/L Chloride 103 (101-111) mmol/L Carbon Dioxide 22.0 (21.0-31.0) mmol/L Anion Gap 15.6 BUN 20 H (7-18) mg/dL Creatinine 0.5 L (0.6-1.3) mg/dL Est Cr Clr Drug Dosing 134.41 mL/min Estimated GFR (MDRD) > 60 BUN/Creatinine Ratio 40.00 Glucose 112 H (74-105) mg/dL Lactic Acid (0.5-2.0) mmol/L Calcium 8.5 (8.4-10.2) mg/dl Total Bilirubin 0.7 (0.2-1.0) mg/dL AST 115 H (10-42) IU/L ALT 85 H (10-60) IU/L Alkaline Phosphatase 60 (42-121) IU/L Troponin I < 0.02 (0.00-0.02) ng/ml Total Protein 7.1 (6.7-8.2) g/dl Albumin 3.8 (3.2-5.5) g/dl Globulin 3.3 Albumin/Globulin Ratio 1.15 Lipase 116 H (22-51) U/L Urine Color (YELLOW) Urine Appearance (CLEAR) Urine pH (5.0-9.0) Ur Specific [place] (1.005-1.030) Urine Protein (NEGATIVE) Urine Glucose (UA) (NEGATIVE) Urine Ketones (NEGATIVE) Urine Occult Blood (NEGATIVE) Urine Nitrite (NEGATIVE) Urine Bilirubin (NEGATIVE) Urine Urobilinogen (0.2-1.0) mg/dL Ur Leukocyte Esterase (NEGATIVE) Urine RBC /HPF Urine WBC (0-5/HPF) /HPF Ur Epithelial Cells (NOT SEEN) /HPF Urine Bacteria (0-FEW/HPF) /HPF Urine Mucus (NOT SEEN) /LPF 06/10/19 06/10/19 Range/Units 09:46 10:24 WBC (5.0-10.0) 10^3/uL RBC (4.2-5.4) 10^6/uL Hgb (12.0-16.0) g/dL Hct (37.0-47.0) % MCV (80-100) fL MCH (27.0-34.0) pg MCHC (33.0-35.0) g/dL Plt Count (150-450) 10^3/uL Neut % (Auto) (42.2-75.2) % Lymph % (Auto) (20.5-50.1) % [place] % (Auto) (2-8) % Eos % (Auto) (1.0-3.0) % Baso % (Auto) (0.0-1.0) % D-Dimer, Quantitative (0-400) ng/mL Sodium (135-145) mmol/L Potassium (3.6-5.0) mmol/L Chloride (101-111) mmol/L Carbon Dioxide (21.0-31.0) mmol/L Anion Gap BUN (7-18) mg/dL Creatinine (0.6-1.3) mg/dL Est Cr Clr Drug Dosing mL/min Estimated GFR (MDRD) BUN/Creatinine Ratio Glucose (74-105) mg/dL Lactic Acid 2.4 H* (0.5-2.0) mmol/L Calcium (8.4-10.2) mg/dl Total Bilirubin (0.2-1.0) mg/dL AST (10-42) IU/L ALT (10-60) IU/L Alkaline Phosphatase (42-121) IU/L Troponin I (0.00-0.02) ng/ml Total Protein (6.7-8.2) g/dl Albumin (3.2-5.5) g/dl Globulin Albumin/Globulin Ratio Lipase (22-51) U/L Urine Color Yellow (YELLOW) Urine Appearance Slightly cloudy (CLEAR) Urine pH 6.5 (5.0-9.0) Ur Specific [place] 1.020 (1.005-1.030) Urine Protein Negative (NEGATIVE) Urine Glucose (UA) Negative (NEGATIVE) Urine Ketones Negative (NEGATIVE) Urine Occult Blood Negative (NEGATIVE) Urine Nitrite Negative (NEGATIVE) Urine Bilirubin Negative (NEGATIVE) Urine Urobilinogen 0.2 (0.2-1.0) mg/dL Ur Leukocyte Esterase Negative (NEGATIVE) Urine RBC Not seen /HPF Urine WBC Not seen (0-5/HPF) /HPF Ur Epithelial Cells Moderate H (NOT SEEN) /HPF Urine Bacteria Rare (0-FEW/HPF) /HPF Urine Mucus Few H (NOT SEEN) /LPF Meds: Medications Generic Name Dose Route Start Last Admin Trade Name Freq PRN Reason Stop Dose Admin Sodium Chloride 10 ml 06/10/19 09:33 06/10/19 10:33 Saline Flush FLUSH 10 ml ASDIRECTED PRN Administration Keep Vein Open Discontinued Medications Generic Name Dose Route Start Last Admin Trade Name Freq PRN Reason Stop Dose Admin Lactated Ringer's 1,000 mls @ 999 mls/hr 06/10/19 10:36 06/10/19 10:50 Ringers, Lactated IV 06/10/19 11:36 999 mls/hr .BOLUS ONE Administration Ketorolac Tromethamine 30 mg 06/10/19 10:34 06/10/19 10:49 Toradol IVPUSH 06/10/19 10:35 30 mg ONETIME ONE Administration Ondansetron HCl 4 mg 06/10/19 10:35 06/10/19 10:50 Zofran IVPUSH 06/10/19 10:36 4 mg ONETIME ONE Administration - Radiology Interpretation Free Text/Narrative:: CT abdomen/pelvis without contrast: stone in upper pole right kidney unchanged from last study in 2019 Chest XR: no acute cardiopulmonary findings Abdominal XR: no acute findings Departure - Departure Time of Disposition: 12:15 Disposition: Home, Self-Care 01 Condition: Good Clinical Impression: Gastroenteritis - Discharge Information *PRESCRIPTION DRUG MONITORING PROGRAM REVIEWED*: Not Applicable *COPY OF PRESCRIPTION DRUG MONITORING REPORT IN PATIENT ADRYAN: Not Applicable Instructions: Viral Gastroenteritis, Adult, [id number] Forms: ED Department Discharge Additional Instructions: Rx: Zofran PRN for nausea Encouraged adequate hydration. Return if symptoms worsen or do not improve. Sepsis Event Note - Evaluation Sepsis Screening Result: No Definite Risk - Focused Exam Vital Signs: Vital Signs Temp Pulse Resp BP Pulse Ox 06/10/19 09:26 98 F 102 H 20 120/83 98 Date Exam was Performed: 06/10/19 Time Exam was Performed: 12:13 - My Orders Last 24 Hours: My Active Orders 06/10/19 09:33 Sodium Chloride 0.9% [Saline Flush] 10 ml FLUSH ASDIRECTED PRN 06/10/19 09:34 EKG 12 Lead [EKG Documentation Completion] [RC] STAT Blood Culture x2 Reflex Set [OM.PC] Stat Peripheral IV Insertion Adult [OM.PC] Stat 06/10/19 09:35 Peripheral IV Care [RC] . DIRECTED 06/10/19 09:46 CULTURE BLOOD [BC] Stat 06/10/19 09:53 CULTURE BLOOD [BC] Stat 06/10/19 09:57 CULTURE STREP A CONFIRMATION [RM] Stat STREP SCRN A RAPID W CULT CONF [RM] Stat - Assessment/Plan Last 24 Hours: My Active Orders 06/10/19 09:33 Sodium Chloride 0.9% [Saline Flush] 10 ml FLUSH ASDIRECTED PRN 06/10/19 09:34 EKG 12 Lead [EKG Documentation Completion] [RC] STAT Blood Culture x2 Reflex Set [OM.PC] Stat Peripheral IV Insertion Adult [OM.PC] Stat 06/10/19 09:35 Peripheral IV Care [RC] . DIRECTED 06/10/19 09:46 CULTURE BLOOD [BC] Stat 06/10/19 09:53 CULTURE BLOOD [BC] Stat 06/10/19 09:57 CULTURE STREP A CONFIRMATION [RM] Stat STREP SCRN A RAPID W CULT CONF [RM] Stat <Miller Perez - Last Filed: 06/10/19 12:18> Course - Re-Assessments/Exams Free Text/Narrative Re-Assessment/Exam: 06/10/19 12:10 I personally performed or re-performed the physical examination and medical decision making. I have verified all student documentation or findings, including history, physical exam and/or medical decision making. Sepsis Event Note - Focused Exam Date Exam was Performed: 06/10/19 Time Exam was Performed: 12:18
[2019-06-10] MEDS ORDERED: Ketorolac 30 MG/ML SDV IVPUSH ONE (10:34)
[2019-06-10] MEDS ORDERED: Ondansetron 4 MG/2 ML SDV IVPUSH ONE (10:35)
[2019-06-10] MEDS ORDERED: Lactated Ringers 1,000 ML IV ONE (10:36)
--- NOTE | 2019-06-10 12:04 | CT ---
EXAMINATION: Abdomen Pelvis wo Cont SEX: Female AGE: 44 years CLINICAL HISTORY: 44-year-old 250 pound female smoker BILATERAL FLANK PAIN (previous partial hysterectomy, appendectomy, cholecystectomy, and "kidney stones"). Comparison CT exam 18 February 2019. Scan technique: Volume acquisition of data emergency unenhanced CT scan of the abdomen and pelvis (kidneys/ureters/bladder) obtained with patient lying supine on the Siemens multislice scanner [place], [place]. All data archived in the PACS system for storage, reformatting axial/sagittal/coronal planes and study. Interpretation: 1. Isolated tiny calyceal calcification upper pole right kidney unchanged since February 2019. Right kidney shows signs of chronic inflammation (cortical scarring). 2. No other evidence of nephrolithiasis and no sign of obstructive uropathy i.e. no pyelocaliectasis/ureterectasis either kidney. 3. Tiny "calyceal calcification lower pole" contralateral left kidney no longer evident (presumably passed). 4. Phleboliths both sides of the pelvis unchanged in size and location since February 2019. 5. Several right ovarian cysts. No new evidence of pelvic or abdominal mass lesion, mesenteric lymphadenopathy, mechanical bowel obstruction, ascites or free intraperitoneal air. 6. Cholecystectomy. Unenhanced liver, stomach, spleen (tiny accessory), pancreas and adrenal glands unremarkable. 7. Atheromatous calcifications normal caliber aortoiliac vessels. No sign of aneurysm or dissection. CONCLUSION: Tiny stone upper pole calyx right kidney present 2018. No other new signs of nephrolithiasis or obstructive uropathy. INTERPRETATION: 1. CONCLUSION:
== END 2019-06-10 12:28 | disposition home or self-care (01) ==
LOC: DL.ED 09:19
DX: K52.9 Noninfective gastroenteritis and colitis, unspecified (principal); E78.00 Pure hypercholesterolemia, unspecified; I10 Essential (primary) hypertension; J45.909 Unspecified asthma, uncomplicated; G56.00 Carpal tunnel syndrome, unspecified upper limb; F41.9 Anxiety disorder, unspecified; F32.9 Major depressive disorder, single episode, unspecified; E03.9 Hypothyroidism, unspecified; Z79.899 Other long term (current) drug therapy; Z91.030 Bee allergy status; Z87.891 Personal history of nicotine dependence; Z88.8 Allergy status to other drugs, medicaments and biological substances
CPT/HCPCS: 36415; 71045; 74019; 74176; 80053; 81001; 83605; 83690; 84484; 85025; 85379; 87040; 87081; 87430; 87804; 93005; 96361; 96374; 96375; 99284; J1885; J2405; J7120

== ENCOUNTER 2019-09-10 14:37 | Emergency (ER) | payer OTHER ==
[2019-09-10 15:01] VITALS: BP 137/69; PULSE 80
--- NOTE | 2019-09-10 15:09 | EDM.PDOC ---
ED HPI GENERAL MEDICAL PROBLEM - General Chief Complaint: Lower Extremity Injury/Pain Stated Complaint: FELL DOWN STAIRS/DIZZY/LUMPS ON LEG Time Seen by Provider: 09/10/19 14:45 Source of Information: Reports: Patient, Old Records, RN History Limitations: Reports: No Limitations - History of Present Illness INITIAL COMMENTS - FREE TEXT/NARRATIVE: States approx. 1/2 hour ago she was going down some steps and misjudged how many were left. Went down approx. 4/5 steps forward on her knees and hands. Landed on right ankle. Feels nauseated. Did not hit her head and no LOC. States she isn't so worried about the ankle "cause if it was broke I'd know". Has bruising behind her left knee which "I'm most worried about so I don't develop a blood clot." Onset: Today, Sudden Duration: Constant Location: Reports: Lower Extremity, Left, Lower Extremity, Right Quality: Reports: Ache Severity: Mild Improves with: Reports: None Worsens with: Reports: None Associated Symptoms: Reports: No Other Symptoms - Related Data Allergies Allergy/AdvReac Type Severity Reaction Status Date / Time cyclobenzaprine HCl Allergy Anaphylactic Verified 09/10/19 14:45 [From Flexeril] Shock gluten Allergy Other Verified 09/10/19 14:45 haloperidol [From Haldol] Allergy Other Verified 09/10/19 14:45 haloperidol lactate Allergy Other Verified 09/10/19 14:45 [From Haldol] venom-honey bee Allergy Hives Verified 09/10/19 14:45 [bee venom (honey bee)] Ivory soap Allergy Rash Uncoded 09/10/19 14:45 Home Meds: Home Meds Acetaminophen [Tylenol Arthritis Pain] 1 tab PO TID 05/08/16 [History] Albuterol In 2 puff INH QID PRN 05/08/16 [History] Bacillus Coagulans/Inulin [Probiotic Formula Capsule] 1 each PO DAILY 05/08/16 [ History] Cetirizine HCl [Zyrtec] 10 mg PO BID 05/08/16 [History] Dicyclomine [Bentyl] 20 mg PO QID PRN 05/08/16 [History] EPINEPHrine [Epipen 2-Uvaldo] 0.3 ml IM ONETIME PRN 05/08/16 [History] Ergocalciferol (Vitamin D2) [Vitamin D2] 50,000 units PO WEEKLY 05/08/16 [ History] Fiber Select Gummies 1 tab PO DAILY 05/08/16 [History] Fluticasone Propionate [Flonase] 1 spray NASBOTH DAILY 05/08/16 [History] Glycopyrrolate [Robinul] 1 mg PO BID 05/08/16 [History] Hydrochlorothiazide 25 mg PO DAILY 05/08/16 [History] LORazepam 0.5 mg PO BID PRN 05/08/16 [History] Levothyroxine Sodium [Synthroid] 150 mcg PO ACBREAKFAST 05/08/16 [History] Lysine 1 tab PO BID 05/08/16 [History] Minocycline HCl [Minocin] 1 cap PO BID 05/08/16 [History] [place]-3/DHA/Epa/Fish Oil [Fish Oil [place]-3 EC 1,200 mg] 2,000 mg PO BID [History] Prazosin HCl [Prazosin] 1 cap PO BEDTIME 05/08/16 [History] Propranolol HCl 80 mg PO BID 05/08/16 [History] Sod Chlor,Bicarb/Squeez Bottle [Sinus Rinse Starter Kit] 1 each NASBOTH TID PRN 05/08/16 [History] atorvaSTATin Calcium [Atorvastatin Calcium] 80 mg PO BEDTIME 05/08/16 [History] estradioL [Estradiol] 1 tab PO DAILY 05/08/16 [History] Fenofibrate Nanocrystallized [Triglide] 1 tab PO DAILY 09/04/16 [History] Magnesium Oxide 1 tab PO DAILY 09/04/16 [History] Omeprazole 20 mg PO BID 09/04/16 [History] Triamcinolone Acetonide [Triamcinolone Acetonide 0.1% Oint] 1 applic TOP ASDIRECTED 09/04/16 [History] FLUoxetine HCl [Fluoxetine HCl] 20 mg PO DAILY 04/25/18 [History] Sulfamethoxazole/Trimethoprim [Sulfamethoxazole-Tmp Ds Tablet] 1 tab PO BID [History] Past Medical History HEENT History: Reports: Allergic Rhinitis, Other (See Below) Other HEENT History: LARYNGITIS Cardiovascular History: Reports: High Cholesterol, Hypertension Respiratory History: Reports: Asthma Gastrointestinal History: Reports: Irritable Bowel Syndrome Other Gastrointestinal History: Hx of Celiac 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: Musculoskeletal History: Reports: Arthritis, Fibromyalgia, Other (See Below) Other Musculoskeletal History: carpel tunnel Neurological History: Reports: Migraines Psychiatric History: Reports: Anxiety, Depression, PTSD, Other (See Below) Other Psychiatric History: HX OF MAJOR PSYCHIATRIC ILLNESS Endocrine/Metabolic History: Reports: Hypothyroidism Hematologic History: Reports: None Immunologic History: Reports: None Oncologic (Cancer) History: Reports: None Dermatologic History: Reports: None - Infectious Disease History Infectious Disease History: Reports: Chicken Pox - Past Surgical History Head Surgeries/Procedures: Reports: None HEENT Surgical History: Reports: None Cardiovascular Surgical History: Reports: None Respiratory Surgical History: Reports: None GI Surgical History: Reports: Appendectomy, Cholecystectomy Female Surgical History: Reports: Hysterectomy, Oophorectomy, Tubal Ligation , Other (See Below) Other Female Surgeries/Procedures: OVARIAN CYST REMOVAL Endocrine Surgical History: Reports: None Neurological Surgical History: Reports: None Musculoskeletal Surgical History: Reports: Other (See Below) Other Musculoskeletal Surgeries/Procedures:: FOOT SURGERY Dermatological Surgical History: Reports: None Social & Family History - Family History Family Medical History: Noncontributory - Caffeine Use Caffeine Use: Reports: None Other Caffeine Use: one or two cups of coffee...decaff. and one soda a day - Living Situation & Occupation Living situation: Reports: , with Spouse Review of Systems - Review of Systems Review Of Systems: Comprehensive ROS is negative, except as noted in HPI. ED EXAM, GENERAL - Physical Exam Exam: See Below Exam Limited By: No Limitations General Appearance: Alert, WD/WN, No Apparent Distress, Anxious, Obese Eye Exam: Bilateral Eye: Normal Inspection Nose: Normal Inspection, No Blood Throat/Mouth: Normal Inspection, Normal Voice, No Airway Compromise Head: Atraumatic, Normocephalic Neck: Normal Inspection, Supple, Non-Tender, Full Range of Motion Respiratory/Chest: No Respiratory Distress Cardiovascular: Normal Peripheral Pulses GI/Abdominal: Normal Bowel Sounds, Soft, Non-Tender Back Exam: Normal Inspection, Full Range of Motion, NT Extremities: Normal Capillary Refill, Other (Mild Rt lateral ankle tenderness, full ROM, able to wt bear and walk. Left medial distal thigh with acute hematomas x3 overlying varicose veins with mild tenderness.). No: Joint Swelling Neurological: Alert, Oriented, CN II-XII Intact, Normal Cognition, Normal Gait, No Motor/Sensory Deficits Psychiatric: Normal Affect, Anxious Skin Exam: Warm, Dry, Intact Course - Vital Signs Last Recorded V/S: Last Vital Signs Temp 98 F 09/10/19 14:41 Pulse 80 09/10/19 14:41 Resp 20 09/10/19 14:41 BP 137/69 09/10/19 14:41 Pulse Ox 99 09/10/19 14:41 Departure - Departure Time of Disposition: 15:06 Disposition: Home, Self-Care 01 Condition: Good Clinical Impression: Traumatic hematoma of left thigh Qualifiers: Encounter type: initial encounter Qualified Code(s): S70.12XA - Contusion of left thigh, initial encounter Right ankle sprain Qualifiers: Encounter type: initial encounter Involved ligament of ankle: unspecified ligament Qualified Code(s): S93.401A - Sprain of unspecified ligament of right ankle, initial encounter Fall down stairs Qualifiers: Encounter type: initial encounter Qualified Code(s): W10.8XXA - Fall (on) (from ) other stairs and steps, initial encounter - Discharge Information *PRESCRIPTION DRUG MONITORING PROGRAM REVIEWED*: Not Applicable *COPY OF PRESCRIPTION DRUG MONITORING REPORT IN PATIENT ADRYAN: Not Applicable Instructions: Ankle Sprain, [id number], Contusion, [id number], Bleeding Varicose Veins Forms: ED Department Discharge Additional Instructions: Heating pad or moist hot pack to left thigh. Take Enteric Coated Aspirin 81mg: Two tablets by mouth every day for 2 to 3 weeks. Don't fall! Follow up in clinic if needed. Sepsis Event Note - Evaluation Sepsis Screening Result: No Definite Risk - Focused Exam Vital Signs: Vital Signs Temp Pulse Resp BP Pulse Ox 09/10/19 14:41 98 F 80 20 137/69 99 Date Exam was Performed: 09/10/19 Time Exam was Performed: 15:17
== END 2019-09-10 15:50 | disposition home or self-care (01) ==
LOC: DL.ED 14:37
DX: S93.401A Sprain of unspecified ligament of right ankle, initial encounter (principal); S70.12XA Contusion of left thigh, initial encounter; I10 Essential (primary) hypertension; E78.00 Pure hypercholesterolemia, unspecified; J45.909 Unspecified asthma, uncomplicated; E03.9 Hypothyroidism, unspecified; F41.9 Anxiety disorder, unspecified; F32.9 Major depressive disorder, single episode, unspecified; F43.10 Post-traumatic stress disorder, unspecified; G43.909 Migraine, unspecified, not intractable, without status migrainosus; Z88.8 Allergy status to other drugs, medicaments and biological substances; Z91.048 Other nonmedicinal substance allergy status; Z91.030 Bee allergy status; Z79.899 Other long term (current) drug therapy; W10.8XXA Fall (on) (from) other stairs and steps, initial encounter
CPT/HCPCS: 99283

== ENCOUNTER 2020-04-08 03:05 | Observation (INO) | payer MEDICARE, OTHER ==
--- NOTE | 2020-04-08 03:19 | EDM.PDOC ---
ED HPI GENERAL MEDICAL PROBLEM - General Chief Complaint: ENT Problem Stated Complaint: THROAT IS CLOSING Time Seen by Provider: 04/08/20 03:16 Source of Information: Reports: Patient History Limitations: Reports: No Limitations - History of Present Illness INITIAL COMMENTS - FREE TEXT/NARRATIVE: feeling like throat is closing hard to swallow and hurts. saw clinic but unable to see anything wrong told to take benadryl. only had some jello tonight but still having problems so came in for eval. Throat Pain Score (Numeric/FACES): 6 - Related Data Allergies Allergy/AdvReac Type Severity Reaction Status Date / Time cyclobenzaprine HCl Allergy Anaphylactic Verified 04/08/20 03:23 [From Flexeril] Shock gluten Allergy Other Verified 04/08/20 03:23 haloperidol [From Haldol] Allergy Other Verified 04/08/20 03:23 haloperidol lactate Allergy Other Verified 04/08/20 03:23 [From Haldol] venom-honey bee Allergy Hives Verified 04/08/20 03:23 [bee venom (honey bee)] Ivory soap Allergy Rash Uncoded 04/08/20 03:23 Home Meds: Home Meds Acetaminophen [Tylenol Arthritis] 1,300 mg PO BID 04/08/20 [History] Albuterol Sulfate [Proventil Hfa] 2 puff IH Q6H PRN 04/08/20 [History] Ascorbic Acid [Anna-C] 1 tab PO DAILY 04/08/20 [History] Black Cohosh Root Extract [Black Cohosh] 3 tab PO DAILY 04/08/20 [History] Celecoxib [CeleBREX] 100 mg PO BID 04/08/20 [History] Cetirizine [ZyrTEC] 10 mg PO DAILY 04/08/20 [History] Cholecalciferol (Vitamin D3) [Vitamin D] 1 tab PO DAILY 04/08/20 [History] ClonazePAM [KlonoPIN] 0.5 mg PO BID 04/08/20 [History] Dicyclomine [Bentyl] 20 mg PO QID PRN 04/08/20 [History] EPINEPHrine [Epipen] 0.3 mg IM ONETIME 04/08/20 [History] FLUoxetine HCl [Fluoxetine HCl] 80 mg PO DAILY 04/08/20 [History] Fenofibrate 160 mg PO DAILY 04/08/20 [History] Fluticasone Propionate [Flonase] 2 spray EMELIA DAILY 04/08/20 [History] Glycopyrrolate 1 mg PO TID 04/08/20 [History] Hydrocodone/Acetaminophen [[place] 10-325 Tablet] 1 tab PO BID PRN 04/08/20 [History] Icosapent Ethyl [Vascepa] 0.5 gm PO DAILY 04/08/20 [History] Inulin/Chromium Picolinate [Fiber Gummies] 2 each PO DAILY 04/08/20 [History] L.acidoph,Paracasei, B.lactis [Probiotic] 1 cap PO DAILY 04/08/20 [History] Levothyroxine 175 mcg PO ACBREAKFAST 04/08/20 [History] Loratadine 10 mg PO DAILY 04/08/20 [History] Lysine 1,000 mg PO BID PRN 04/08/20 [History] Magnesium Oxide [Magnesium] 400 mg PO DAILY 04/08/20 [History] Minocycline [Minocin] 50 mg PO BID 04/08/20 [History] Multivitamins/Minerals [Vitamins and Minerals] 1 tab PO DAILY 04/08/20 [History] [place]-3S/DHA/Epa/Fish Oil [Fish Oil [place]-3 Softgel] 2,000 mg PO BID 04/08/20 [History] Omeprazole 20 mg PO BIDAC 04/08/20 [History] Ondansetron [Zofran] 4 mg PO Q8H 04/08/20 [History] Oxybutynin Chloride [Ditropan Xl] 10 mg PO DAILY 04/08/20 [History] Prazosin HCl [Prazosin] 5 mg PO DAILY 04/08/20 [History] Propranolol [Inderal LA 24 Hr] 80 mg PO BID 04/08/20 [History] atorvaSTATin [Lipitor] 80 mg PO BEDTIME 04/08/20 [History] estradioL [Estradiol] 0.5 mg PO DAILY 04/08/20 [History] hydroCHLOROthiazide [Hydrochlorothiazide] 25 mg PO DAILY 04/08/20 [History] metFORMIN [Glucophage XR] 500 mg PO BIDMEALS 04/08/20 [History] methylPREDNISolone [Medrol] 4 mg PO ASDIRECTED 04/08/20 [History] tiZANidine HCl [Tizanidine HCl] 4 mg PO TID 04/08/20 [History] Past Medical History HEENT History: Reports: Allergic Rhinitis, Other (See Below) Other HEENT History: LARYNGITIS Cardiovascular History: Reports: High Cholesterol, Hypertension Respiratory History: Reports: Asthma Gastrointestinal History: Reports: Irritable Bowel Syndrome Other Gastrointestinal History: Hx of Celiac Disease 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: 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: Musculoskeletal History: Reports: Arthritis, Fibromyalgia, Other (See Below) Other Musculoskeletal History: carpel tunnel Neurological History: Reports: Migraines Psychiatric History: Reports: Anxiety, Depression, PTSD, Other (See Below) Other Psychiatric History: HX OF MAJOR PSYCHIATRIC ILLNESS Endocrine/Metabolic History: Reports: Hypothyroidism Hematologic History: Reports: None Immunologic History: Reports: None Oncologic (Cancer) History: Reports: None Dermatologic History: Reports: None - Infectious Disease History Infectious Disease History: Reports: Chicken Pox - Past Surgical History Head Surgeries/Procedures: Reports: None HEENT Surgical History: Reports: None Cardiovascular Surgical History: Reports: None Respiratory Surgical History: Reports: None GI Surgical History: Reports: Appendectomy, Cholecystectomy Female Surgical History: Reports: Hysterectomy, Oophorectomy, Tubal Ligation, Other (See Below) Other Female Surgeries/Procedures: OVARIAN CYST REMOVAL Endocrine Surgical History: Reports: None Neurological Surgical History: Reports: None Musculoskeletal Surgical History: Reports: Other (See Below) Other Musculoskeletal Surgeries/Procedures:: FOOT SURGERY Dermatological Surgical History: Reports: None Social & Family History - Family History Family Medical History: No Pertinent Family History - Caffeine Use Caffeine Use: Reports: None Other Caffeine Use: one or two cups of coffee...decaff. and one soda a day - Living Situation & Occupation Living situation: Reports: , with Spouse ED ROS ENT - Review of Systems Review Of Systems: Comprehensive ROS is negative, except as noted in HPI. ED EXAM, ENT - Physical Exam Exam: See Below Exam Limited By: No Limitations General Appearance: Alert, WD/WN, No Apparent Distress, Anxious, Other (tearful) Ears: Hearing Grossly Normal Mouth/Throat: Pharyngeal Erythema. No: Drooling, Hoarse Voice, Lip Swelling, Throat Swelling, Trismus, Uvular Deviation, Uvular Edema Head: Atraumatic Neck: Non-Tender, Full Range of Motion Respiratory/Chest: No Respiratory Distress, Lungs Clear, Normal Breath Sounds Cardiovascular: Regular Rate, Rhythm GI/Abdominal: Soft, Non-Tender (Female) Exam: Deferred Rectal (Female) Exam: Deferred Neurological: Alert, Oriented, Normal Cognition, Normal Gait, No Motor/Sensory Deficits Psychiatric: Anxious, Tearful Skin: Warm, Dry, Normal Color Lymphatic: No Adenopathy Course - Vital Signs Last Recorded V/S: Last Vital Signs Temp 36.8 C 04/08/20 03:13 Pulse 97 04/08/20 03:13 Resp 19 04/08/20 03:13 BP 111/84 04/08/20 03:13 Pulse Ox 98 04/08/20 03:13 - Orders/Labs/Meds Orders: Active Orders 24 hr Category Date Time Status CULTURE STREP A CONFIRMATION [] Stat Lab 04/08/20 03:18 Results STREP SCRN A RAPID W CULT CONF [] Stat Lab 04/08/20 03:18 Results Ampicillin/Sulbactam Na [Unasyn] 1.5 gm Med 04/08/20 06:56 Ordered Sodium Chloride 0.9% [Normal Saline] 100 ml IV ONETIME Sodium Chloride 0.9% [Normal Saline] 1,000 ml Med 04/08/20 05:00 Active IV ASDIRECTED dexAMETHasone [Decadron] Med 04/08/20 06:56 Once 4 mg IVPUSH ONETIME ONE Medication Orders Sodium Chloride (Normal Saline) 1,000 mls @ 500 mls/hr IV ASDIRECTED CLAUDIO Last Admin: 04/08/20 05:02 Dose: 500 mls/hr Documented by: LUIS MANUEL Labs: Laboratory Tests 04/08/20 04/08/20 Range/Units 03:17 03:17 WBC 7.7 (5.0-10.0) 10^3/uL RBC 4.15 L (4.2-5.4) 10^6/uL Hgb 11.7 L (12.0-16.0) g/dL Hct 36.2 L (37.0-47.0) % MCV 87.2 D (80-100) fL MCH 28.2 (27.0-34.0) pg MCHC 32.3 L (33.0-35.0) g/dL Plt Count 330 (150-450) 10^3/uL Neut % (Auto) 69.4 (42.2-75.2) % Lymph % (Auto) 18.4 L (20.5-50.1) % Schleicher % (Auto) 11.3 H (2-8) % Eos % (Auto) 0.8 L (1.0-3.0) % Baso % (Auto) 0.1 (0.0-1.0) % Sodium 138 (136-145) mmol/L Potassium 4.0 (3.5-5.1) mmol/L Chloride 99 (98-107) mmol/L Carbon Dioxide 28 (21-32) mmol/L Anion Gap 15.0 H (7-13) mEq/L BUN 14 (7-18) mg/dL Creatinine 0.80 (0.55-1.02) mg/dL Est Cr Clr Drug Dosing 83.13 mL/min Estimated GFR (MDRD) > 60 BUN/Creatinine Ratio 17.5 (No establ ref range) Glucose 139 H (74-99) mg/dL Calcium 9.1 (8.5-10.1) mg/dL Total Bilirubin 0.5 (0.2-1.0) mg/dL AST 15 (15-37) U/L ALT 24 (14-59) U/L Alkaline Phosphatase 74 (46-116) U/L Total Protein 7.4 (6.4-8.2) g/dL Albumin 3.3 L (3.4-5.0) g/dL Globulin 4.1 Albumin/Globulin Ratio 0.80 Meds: Medications Generic Name Dose Route Start Last Admin Trade Name Freq PRN Reason Stop Dose Admin Sodium Chloride 1,000 mls @ 500 mls/hr 04/08/20 05:00 04/08/20 05:02 Normal Saline IV 500 mls/hr ASDIRECTED CLAUDIO Administration Discontinued Medications Generic Name Dose Route Start Last Admin Trade Name Freq PRN Reason Stop Dose Admin Iopamidol 100 ml 04/08/20 04:49 04/08/20 05:28 Isovue-300 (61%) IVPUSH 04/08/20 04:50 75 ml ONETIME ONE Administration - Re-Assessments/Exams Free Text/Narrative Re-Assessment/Exam: 04/08/20 06:[address] Rocha who kindly admitted pt to observation Departure - Departure Time of Disposition: 06:58 Disposition: Refer to Observation Condition: Good Clinical Impression: Supraglottitis Qualifiers: Airway obstruction: without obstruction Qualified Code(s): J04.30 - Supraglottitis, unspecified, without obstruction - Discharge Information Forms: ED Department Discharge Sepsis Event Note (ED) - Focused Exam Vital Signs: Vital Signs Temp Pulse Resp BP Pulse Ox 04/08/20 03:13 36.8 C 97 19 111/84 98 - My Orders Last 24 Hours: My Active Orders 04/08/20 03:18 CULTURE STREP A CONFIRMATION [RM] Stat STREP SCRN A RAPID W CULT CONF [RM] Stat 04/08/20 05:00 Sodium Chloride 0.9% [Normal Saline] 1,000 ml IV ASDIRECTED 04/08/20 06:56 Ampicillin/Sulbactam Na [Unasyn] 1.5 gm Sodium Chloride 0.9% [Normal Saline] 100 ml IV ONETIME dexAMETHasone [Decadron] 4 mg IVPUSH ONETIME ONE - Assessment/Plan Last 24 Hours: My Active Orders 04/08/20 03:18 CULTURE STREP A CONFIRMATION [RM] Stat STREP SCRN A RAPID W CULT CONF [RM] Stat 04/08/20 05:00 Sodium Chloride 0.9% [Normal Saline] 1,000 ml IV ASDIRECTED 04/08/20 06:56 Ampicillin/Sulbactam Na [Unasyn] 1.5 gm Sodium Chloride 0.9% [Normal Saline] 100 ml IV ONETIME dexAMETHasone [Decadron] 4 mg IVPUSH ONETIME ONE
[2020-04-08 03:51] LABS: CHLORIDE,CL 99 mmol/L (98-107); SODIUM,NA 138 mmol/L (136-145)
--- NOTE | 2020-04-08 04:16 | CR ---
PROCEDURE INFORMATION: Exam: XR Soft Tissue Neck Exam date and time: 04/08/2020 3:34 AM Age: 45 years old Clinical indication: Other: Pain, hard to swallow; Additional info: Pain hard to swallow TECHNIQUE: Imaging protocol: XR of the soft tissues of the neck. COMPARISON: CT Soft Tissue Neck w Cont 06/16/2016 3:20 PM FINDINGS: Airway: Unremarkable. No abnormal narrowing. Soft tissues: Interval mild thickening of the epiglottis. Interval prominent increase in depth to 15 mm of the soft tissues anterior to the body of C2. No prevertebral gas. Bones/joints: Continued slight anterior spurring at C6-C7. No apparent acute bony disease. C7 obscured by the shoulders. IMPRESSION: Interval mild thickening of the epiglottis and prominent increase in depth of the prevertebral soft tissues at the C2 level. Epiglottitis and edema or infection of the retropharyngeal tissues suspected.
[2020-04-08] MEDS ORDERED: Iopamidol 612 MG/ML 100 ML Bottle IVPUSH ONE (04:49)
[2020-04-08] MEDS ORDERED: Sodium Chloride 0.9% 1,000 ML IV SCH (05:00)
--- NOTE | 2020-04-08 06:24 | CT ---
PROCEDURE INFORMATION: Exam: CT Neck With Contrast Exam date and time: 04/08/2020 5:14 AM Age: 45 years old Clinical indication: Other: See below; Additional info: Possible retropharyngeal edema/infection TECHNIQUE: Imaging protocol: Computed tomography images of the neck with intravenous contrast. Radiation optimization: All CT scans at this facility use at least one of these dose optimization techniques: automated exposure control; mA and/or kV adjustment per patient size (includes targeted exams where dose is matched to clinical indication); or iterative reconstruction. Contrast material: ISOVUE; Contrast volume: 300 ml; Contrast route: INTRAVENOUS (IV); COMPARISON: CT Soft Tissue Neck w Cont 06/16/2016 3:20 PM FINDINGS: Brain: Continued prominently increased CSF in the sella. Mastoid air cells: Mastoids still unremarkable. Paranasal sinuses: No interval sinus disease. Nasopharynx: Unremarkable. Oropharynx: Interval thickening of the prevertebral soft tissues in the oropharynx and hypopharynx. Hypopharynx: See above. Larynx: Interval mild thickening of the epiglottis. Retropharyngeal space: No gas or apparent apparent fluid in the retropharyngeal space. Submandibular/Parotid glands: Submandibular and parotid glands still unremarkable. Thyroid: Still almost no thyroid tissue. Lymph nodes: Continued enlarged level 2 node on the left. No new enlarged nodes. Trachea: Visualized trachea unremarkable. Lungs: No interval disease in the lung apices. Bones/joints: Continued slight lower cervical kyphosis. Small spurs still present along the anterior aspect of the C6-C7 disc. No acute bony disease. Soft tissues: No significant soft tissue swelling. IMPRESSION: 1. Interval mild thickening of the epiglottis and the prevertebral soft tissues in the oropharynx and hypopharynx, but no gas or apparent fluid in the retropharyngeal space. 2. Continued prominently increased CSF in the sella. Other chronic findings detailed above.
[2020-04-08] MEDS ORDERED: Ampicillin/Sulbactam Na 1.5 GM in Sodium Chloride 0.9% 100 ML IV ONE (06:56)
[2020-04-08] MEDS ORDERED: Dexamethasone 4 MG/ML SDV IVPUSH ONE (06:56)
[2020-04-08] MEDS ORDERED: Ketorolac 30 MG/ML SDV IVPUSH ONE (07:08)
[2020-04-08] MEDS ORDERED: Morphine 2 MG/ML SYRINGE IVPUSH PRN (08:24)
[2020-04-08] MEDS ORDERED: Ondansetron 4 MG Tab.DIS PO PRN (08:24)
[2020-04-08] MEDS ORDERED: Ondansetron 4 MG/2 ML SDV IVPUSH PRN (08:24)
[2020-04-08] MEDS ORDERED: Acetaminophen 325 MG Tab PO PRN (08:24)
--- NOTE | 2020-04-08 09:03 | HP ---
CHIEF COMPLAINT: Throat is closing. HISTORY OF PRESENT ILLNESS: The patient is a 45-year-old female, who was admitted through the emergency room because, for the last 3 days, she has been complaining of sore throat and difficulty swallowing and pills getting stuck in her throat. She was seen at the clinic yesterday, and she was told to take Benadryl, but she continued to have the pain and difficulty with swallowing, and because of this, she was seen in the emergency room, and in the emergency room, she had an x-ray of the soft tissue of the neck as well as a CT of the neck, and this showed supraglottitis. Because of this, she was then admitted for further evaluation and management. The patient denies any fever or chills, chest pain, shortness of breath, or abdominal pain. PAST MEDICAL HISTORY: Remarkable for major psychiatric illness, anxiety, depression, PTSD, arthritis, and fibromyalgia. PAST SURGICAL HISTORY: History of cholecystectomy. FAMILY HISTORY: Noncontributory. SOCIAL HISTORY: The patient is , quit smoking cigarettes a year ago, non- alcohol drinker. REVIEW OF SYSTEMS: As in HPI. The rest of the review of systems is negative. HOME MEDICATIONS: Tylenol, albuterol inhaler, ascorbic acid, Celebrex, Zyrtec, vitamin D3, clonazepam, dicyclomine, EpiPen, fluoxetine, fenofibrate, fluticasone, glycopyrrolate, hydrocodone, Vascepa, inulin, levothyroxine, loratadine, minocycline, prazosin, propranolol, Lipitor, estradiol, and metformin. ALLERGIES: Flexeril, gluten, haloperidol, venom honey bee, and Ivory soap. PHYSICAL EXAMINATION: General: The patient is alert, oriented, and not in any acute respiratory distress. Vital Signs: Blood pressure is 111/84, pulse of 97, respirations 19, temperature of 36.8, and saturation is 98% on room air. SHEENT: Normocephalic. There are pink palpebral conjunctivae. Sclerae are anicteric. No JVD. There is some fullness on the uvula. Neck: Supple. Heart: Regular rate and rhythm. Normal S1 and S2. No gallops. No rubs. Lungs: Equal bilaterally. No crackles. No wheezing or stridor. Abdomen: Obese, soft, nontender. Bowel sounds are positive. Extremities: Negative for any pedal edema. No calf tenderness. LABORATORY WORKUP: CBC: WBC is 7.7, hemoglobin is 11.7, hematocrit is 36.2, platelets are 330. Comp panel: Anion gap of 15, glucose is 139, albumin is 3.3; the rest of the panel is unremarkable. RADIOGRAPHIC STUDIES: Soft tissue x-ray of the neck showed interval mild thickening of the epiglottis and prominent increase in depth of the prevertebral soft tissue at the C2 level. Epiglottitis and edema or infection of the retropharyngeal tissues suspected. CAT scan of the soft tissue of the neck showed interval mild thickening of the epiglottitis and prevertebral tissue in the oropharynx and hypopharynx but no gas or apparent fluid in the retropharyngeal space. There is also continued prominently increased CSF on the sella. ADMITTING DIAGNOSES: 1. Supraglottitis. 2. Anxiety and depression. 3. Obesity. 4. Posttraumatic stress disorder. 5. Asthma. TREATMENT PLAN: The patient is going to be admitted to observation, and Dr. Chamberlain has discussed with Dr. Chris about the case, and Dr. Chris has just recommended medical management with IV steroids and IV antibiotics. We will also resume the patient's home medications once she is able to swallow the medication. The patient is a full code. [facility] /[id number]
[2020-04-08] MEDS ORDERED: ClonazePAM 0.5 MG Tab PO PRN (09:35)
[2020-04-08] MEDS: Enoxaparin 40 MG/0.4 ML Syringe SUBCUT SCH (09:39)
[2020-04-08] MEDS: Sodium Chloride 0.9% 1,000 ML IV SCH ×2 (09:40→19:36)
[2020-04-08] MEDS ORDERED: Hydrochlorothiazide 25 MG Tab PO SCH (09:45)
[2020-04-08] MEDS: Levothyroxine 50 MCG Tab PO SCH (10:55)
[2020-04-08] MEDS: Levothyroxine 125 MCG Tab PO SCH (10:55)
[2020-04-08] MEDS: Ampicillin/Sulbactam Na 1.5 GM in Sodium Chloride 0.9% 100 ML IV SCH ×2 (12:14→17:05)
[2020-04-08] MEDS: oxyCODONE 5 MG Tab PO PRN ×3 (12:20→22:11)
[2020-04-08] MEDS: Omeprazole 20 MG Cap.CR*PT OWN MED PO SCH (16:26)
[2020-04-08] MEDS: Budesonide 0.5 MG/2 ML Neb Susp NEB SCH (17:59)
[2020-04-08] MEDS ORDERED: PRAZOSIN 5 MG PO SCH (21:00)
[2020-04-08] MEDS ORDERED: Propranolol 80 MG Cap.ER PO SCH (21:00)
[2020-04-08] MEDS: Dexamethasone 4 MG/ML SDV IVPUSH SCH (22:08)
[2020-04-08] MEDS: Propranolol 20 MG Tab PO SCH (22:13)
[2020-04-09] MEDS: Ampicillin/Sulbactam Na 1.5 GM in Sodium Chloride 0.9% 100 ML IV SCH ×2 (00:04→05:28)
[2020-04-09] MEDS: Sodium Chloride 0.9% 1,000 ML IV SCH (04:10)
[2020-04-09] MEDS: Omeprazole 20 MG Cap.CR*PT OWN MED PO SCH (05:31)
[2020-04-09] MEDS: Levothyroxine 50 MCG Tab PO SCH (05:32)
[2020-04-09] MEDS: Levothyroxine 125 MCG Tab PO SCH (05:32)
[2020-04-09] MEDS: Budesonide 0.5 MG/2 ML Neb Susp NEB SCH (07:25)
[2020-04-09 08:15] VITALS: BP 156/90; PULSE 85
[2020-04-09] MEDS: Dexamethasone 4 MG/ML SDV IVPUSH SCH (09:16)
[2020-04-09] MEDS: Propranolol 20 MG Tab PO SCH (09:17)
[2020-04-09] MEDS: Enoxaparin 40 MG/0.4 ML Syringe SUBCUT SCH (09:18)
--- NOTE | 2020-04-09 10:04 | PN ---
DATE: 04/09/2020 SUBJECTIVE: The patient is feeling much better this morning and she is able to tolerate food and her medication and she is able to talk clearly now. She mentioned that she is ready to go home. She denies any shortness of breath, chest pain, or any significant throat pain. OBJECTIVE: Vital Signs: Blood pressure is 156/90, pulse of 85, respirations 20, temperature of 96.4, saturation is 97% on room air. Heart: Regular rate and rhythm. Lungs: Equal bilaterally. No crackles, wheezing, rhonchi, or stridor. Abdomen: Obese, soft, nontender. Bowel sounds positive. Extremities: Negative for any calf tenderness or any significant pedal edema. PLAN: We will discharge the patient home today and we will continue with oral antibiotics, Augmentin for the next 7 days, and we will also continue with dexamethasone 4 mg daily for the next 5 days, and we will have her follow up with Alma Barrow, her primary care provider in this week. [facility] /[id number]
--- NOTE | 2020-04-09 10:43 | DISCH ---
FINAL DIAGNOSES: 1. Supraglottitis. 2. Anxiety and depression. 3. Obesity. 4. Posttraumatic stress disorder. 5. Asthma. BRIEF HISTORY OF PRESENT ILLNESS: The patient is a 45-year-old female who was admitted through the emergency room because of sore throat and difficulty swallowing and CAT scan of the neck showed supraglottitis. HOSPITAL COURSE: The patient was admitted to General Medicine floor. She was started on IV antibiotics (Unasyn) and was also placed on IV dexamethasone. She was also resumed on her home medication. The patient did well with the above regimen and her diet was slowly advanced which she tolerated and the rest of the hospital course was unremarkable and she was subsequently discharged. CONDITION ON DISCHARGE: Improved. MEDICATIONS ON DISCHARGE: Augmentin 875 b.i.d. for the next 7 days and Decadron 4 mg p.o. daily for the next 5 days and she will be resumed on her home medication. FOLLOWUP: She is going to follow up with Alma Barrow next week. [facility] /[id number]
== END 2020-04-09 11:00 | disposition home or self-care (01) ==
LOC: DL.ED 03:05 → DL.MS 06:59 → DL.ED 08:09
PROVIDERS: ADMIT Internal Medicine; ATTEND Internal Medicine
DX: J02.9 Acute pharyngitis, unspecified (principal); J04.30 Supraglottitis, unspecified, without obstruction; F41.9 Anxiety disorder, unspecified; F32.9 Major depressive disorder, single episode, unspecified; F43.10 Post-traumatic stress disorder, unspecified; M19.90 Unspecified osteoarthritis, unspecified site; E66.9 Obesity, unspecified; J45.909 Unspecified asthma, uncomplicated; Z20.822 Contact with and (suspected) exposure to COVID-19; Z90.49 Acquired absence of other specified parts of digestive tract; Z87.891 Personal history of nicotine dependence; Z88.8 Allergy status to other drugs, medicaments and biological substances; Z91.030 Bee allergy status; Z91.048 Other nonmedicinal substance allergy status; Z79.899 Other long term (current) drug therapy; Z68.39 Body mass index [BMI] 39.0-39.9, adult
CPT/HCPCS: 36415; 70360; 70491; 80053; 85025; 87081; 87430; 94640; 96365; 96366; 96372; 96375; 96376; 99217; 99219; 99283; 99285; A9270; G0378; J0295; J1100; J1650; J1885; J7030; J7050; Q9967; U0002

== ENCOUNTER 2021-05-11 06:00 | Day surgery (SDC) | payer MEDICARE, OTHER ==
[~2021-05-11 06:00] MED LIST changes: -Sodium Chloride 0.9% 10 ML Syringe FLUSH PRN; +Sodium Chloride 0.9% 10 ML Syringe FLUSH SCH
[2021-05-11] MEDS ORDERED: Midazolam 1 MG/ML 2 ML SDV IV ONE ×6 (06:01→08:11)
[2021-05-11] MEDS ORDERED: fentaNYL 100 MCG/2 ML SDV IV ONE ×3 (06:01→08:03)
[2021-05-11] MEDS ORDERED: Dextrose 5%-0.45% NaCl 1,000 ML IV SCH (06:30)
[2021-05-11 10:24] VITALS: BP 151/71; PULSE 71
== END 2021-05-11 10:30 | disposition home or self-care (01) ==
LOC: DL.ENDO 06:00
PROVIDERS: ATTEND Internal Medicine Gastroenterology
DX: K62.5 Hemorrhage of anus and rectum (principal); K64.8 Other hemorrhoids; K64.4 Residual hemorrhoidal skin tags; E66.09 Other obesity due to excess calories; F41.1 Generalized anxiety disorder; E78.5 Hyperlipidemia, unspecified; E03.9 Hypothyroidism, unspecified; G43.909 Migraine, unspecified, not intractable, without status migrainosus; K90.0 Celiac disease; D64.9 Anemia, unspecified; F43.10 Post-traumatic stress disorder, unspecified; Z98.890 Other specified postprocedural states; Z90.49 Acquired absence of other specified parts of digestive tract; Z01.812 Encounter for preprocedural laboratory examination; Z20.822 Contact with and (suspected) exposure to COVID-19
CPT/HCPCS: J2250; J3010; J7042; U0002

== ENCOUNTER 2021-08-06 16:27 | Emergency (ER) | payer MEDICARE, OTHER ==
[2021-08-06 18:11] VITALS: BP 170/97; PULSE 83
== END 2021-08-06 19:18 | disposition home or self-care (01) ==
LOC: DL.ED 16:27
DX: R04.0 Epistaxis (principal); E78.00 Pure hypercholesterolemia, unspecified; K21.9 Gastro-esophageal reflux disease without esophagitis; I10 Essential (primary) hypertension; M19.90 Unspecified osteoarthritis, unspecified site; E03.9 Hypothyroidism, unspecified; E66.9 Obesity, unspecified; Z68.36 Body mass index [BMI] 36.0-36.9, adult; Z90.49 Acquired absence of other specified parts of digestive tract; Z90.710 Acquired absence of both cervix and uterus; Z88.8 Allergy status to other drugs, medicaments and biological substances; Z91.018 Allergy to other foods; Z91.030 Bee allergy status; Z91.048 Other nonmedicinal substance allergy status; Z79.899 Other long term (current) drug therapy; Z79.4 Long term (current) use of insulin; Z79.82 Long term (current) use of aspirin
CPT/HCPCS: 87081; 87430; 99282; 99283

== ENCOUNTER 2021-11-18 07:05 | Emergency (ER) | payer MEDICARE, OTHER ==
[2021-11-18 08:10] VITALS: BP 148/73; PULSE 96
[2021-11-18 08:13] LABS: ANION GAP 13.7 mEq/L (7-13)
[2021-11-18] MEDS ORDERED: Iopamidol 755 Mg/ML 100 ML Bottle IVPUSH ONE (08:49)
== END 2021-11-18 10:10 | disposition home or self-care (01) ==
LOC: DL.ED 07:05
DX: S29.011A Strain of muscle and tendon of front wall of thorax, initial encounter (principal); J90 Pleural effusion, not elsewhere classified; R79.1 Abnormal coagulation profile; I10 Essential (primary) hypertension; E66.9 Obesity, unspecified; Z68.36 Body mass index [BMI] 36.0-36.9, adult; Z88.8 Allergy status to other drugs, medicaments and biological substances; Z91.030 Bee allergy status; Z79.899 Other long term (current) drug therapy; Z79.82 Long term (current) use of aspirin; Z90.49 Acquired absence of other specified parts of digestive tract; Z20.822 Contact with and (suspected) exposure to COVID-19; X58.XXXA Exposure to other specified factors, initial encounter
CPT/HCPCS: 36415; 71260; 80053; 83605; 84484; 85025; 85379; 93005; 93010; 99284; 99285; Q9967; U0002

== ENCOUNTER 2023-07-02 11:13 | Emergency (ER) | payer MEDICARE, OTHER ==
[2023-07-02 11:58] LABS: BASOPHILS PERCENT AUTO 0.4 % (0.0-1.0); EOSINOPHILS PERCENT AUTO 1.3 % (1.0-3.0); HEMATOCRIT 35.7 % (37.0-47.0); HEMOGLOBIN 11.3 g/dL (12.0-16.0); LYMPHOCYTES PERCENT AUTO 24.9 % (20.5-50.1); MEAN CORPUSCULAR HEMOGLOBIN 29.8 pg (27.0-34.0); MEAN CORPUSCULAR HGB CONC 31.7 g/dL (33.0-35.0); MEAN CORPUSCULAR VOLUME 94.2 fL (80-100); MONOCYTES PERCENT AUTO 9.3 % (2-8); NEUTROPHILS PERCENT AUTO 64.1 % (42.2-75.2); PLATELET COUNT,PLT 399 10^3/uL (150-450); RED BLOOD CELL COUNT 3.79 10^6/uL (4.2-5.4); WHITE BLOOD CELL COUNT,WBC 8.2 10^3/uL (5.0-10.0)
[2023-07-02 12:15] LABS: A/G RATIO 0.82; ALANINE AMINOTRANSFERASE,ALT 18 U/L (14-59); ALBUMIN 3.2 g/dL (3.4-5.0); ALKALINE PHOSPHATASE 46 U/L (46-116); ANION GAP 13.8 mEq/L (7-13); ASPARTATE AMNIOTRANSFERASE,AST 12 U/L (15-37); BILIRUBIN TOTAL 0.2 mg/dL (0.2-1.0); BLOOD UREA NITROGEN,BUN 22 mg/dL (7-18); BUN/CREATININE RATIO 18.3 (No establ ref range); C-REACTIVE PROTEIN 3.45 ng/dL (<=0.50); CALCIUM 8.9 mg/dL (8.5-10.1); CARBON DIOXIDE,CO2 28 mmol/L (21-32); CHLORIDE,CL 103 mmol/L (98-107); EST CRCL DRUG DOSING (CG) 53.67 mL/min; ESTIMATED GFR 56 mL/min (>=60); GLUCOSE RANDOM 105 mg/dL (70-99); POTASSIUM,K 3.8 mmol/L (3.5-5.1); PROTEIN TOTAL,TP 7.1 g/dL (6.4-8.2); SODIUM,NA 141 mmol/L (136-145)
[2023-07-02 12:29] VITALS: BP 135/67; PULSE 64
[2023-07-02 12:40] LABS: CORONAVIRUS COVID-19 NAA NEGATIVE (NEGATIVE); INFLUENZA A NAA NEGATIVE (NEGATIVE); INFLUENZA B NAA NEGATIVE (NEGATIVE); RESPIRATORY SYNCYTIAL VIR NAA NEGATIVE (NEGATIVE)
== END 2023-07-02 13:10 | disposition home or self-care (01) ==
LOC: DL.ED 11:13
DX: R06.02 Shortness of breath (principal); I10 Essential (primary) hypertension; E78.00 Pure hypercholesterolemia, unspecified; J45.909 Unspecified asthma, uncomplicated; E03.9 Hypothyroidism, unspecified; E66.9 Obesity, unspecified; K21.9 Gastro-esophageal reflux disease without esophagitis; Z90.49 Acquired absence of other specified parts of digestive tract; Z88.8 Allergy status to other drugs, medicaments and biological substances; Z91.018 Allergy to other foods; Z91.030 Bee allergy status; Z68.41 Body mass index [BMI] 40.0-44.9, adult; Z88.1 Allergy status to other antibiotic agents; Z91.048 Other nonmedicinal substance allergy status; Z90.710 Acquired absence of both cervix and uterus; Z79.82 Long term (current) use of aspirin; Z79.4 Long term (current) use of insulin; Z79.899 Other long term (current) drug therapy
CPT/HCPCS: 0241U; 36415; 71045; 80053; 84145; 84484; 85025; 85379; 86140; 93005; 99285